=== PATIENT | male | born 1945 | race Caucasian/White ===

== ENCOUNTER 2024-05-13 22:20 | Outpatient (CLI) | payer MEDICARE, BC, SELFPAY | END 2024-05-13 22:21 | disposition home or self-care (01) | LOC: AMB 05-15 06:02 | PROVIDERS: Visit Provider Family Medicine | DX: K62.5 Hemorrhage of anus and rectum (principal); R19.7 Diarrhea, unspecified; R53.1 Weakness | CPT/HCPCS: A0425; A0427 ==